=== PATIENT | female | born 1970 | race Caucasian/White ===

== ENCOUNTER 2018-06-19 08:59 | Emergency (ER) | payer BC ==
[2018-06-19] MEDS ORDERED: Iopamidol 370 76% 100 ML VIAL ONE (09:00)
[2018-06-19 09:52] LABS: Bilirubin Negative (Negative); Blood, Urine Negative (Negative); Clarity Clear (Clear); Glucose, Urine (Dipstick) Negative (Negative); Leukocyte Negative (Negative); Nitrite Negative (Negative); Protein, Urine (Dipstick) Negative (Neg-Trace); Specific Gravity, Urine 1.015 (1.005-1.030); Urobilinogen 0.2 mg/dL (0.2-1.0); pH, Urine 7.5 (5.0-9.0)
[2018-06-19] MEDS ORDERED: Ketorolac Tromethamine 30 MG/ML VIAL ONE (09:57)
[2018-06-19] MEDS ORDERED: Ondansetron HCl/PF 4 MG/2 ML Vial ONE (09:57)
[2018-06-19 10:08] LABS: #Basophils 0.1 thou/uL (0.0-0.2); #Lymphocytes 1.4 thou/uL (1.20-3.40); #Monocytes 0.6 thou/uL (0.11-0.59); %Basophils 0.7 % (0.0-1.0); %Eosinophils 0.3 % (0.0-10.0); %Lymphocytes 12.2 % (21.0-51.0); %Monocytes 5.8 % (0.0-10.0); Hemoglobin 14.5 g/dL (12.0-16.0); Mean Corpuscular HGB CONC 34.8 g/dL (32.0-36.0); Mean Corpuscular Hemoglobin 29.7 pg (27.0-31.0); Mean Corpuscular Volume 85.4 fL (78.0-98.0); Mean Platelet Volume 7.7 fL (7.4-10.4); Platelet Count 227 thou/uL (130-400); RBC Distribution Width 11.8 % (11.5-14.5); Red Blood Cell (RBC) Count 4.89 mill/uL (4.20-5.40); White Blood Cell (WBC) Count 11.1 thou/uL (4.8-10.8)
[2018-06-19 10:22] LABS: ALT (SGPT) 10 U/L (8-55); AST (SGOT) 16 U/L (5-34); Alkaline Phosphatase 87 U/L (40-150); Anion Gap 13 mmol/L (10-20); BUN (Urea Nitrogen) 14 mg/dL (7.0-18.7); Bilirubin, Total 0.7 mg/dL (0.2-1.2); CK (CPK) 29 U/L (29-168); Calc. Creatinine Clearance 0 mL/min (70-130); Calcium 10.5 mg/dL (7.8-10.44); Carbon Dioxide 24 mmol/L (22-29); Chloride 103 mmol/L (98-107); Estimated GFR-MDRD 71; Globulin 3.4 g/dL (2.4-3.5); Glucose 110 mg/dL (70-105); Lipase 14 U/L (8-78); Potassium 3.4 mmol/L (3.5-5.1); Protein, Total 7.4 g/dL (6.0-8.3); Sodium 137 mmol/L (136-145)
[2018-06-19 10:24] LABS: CKMB 0.4 ng/mL (0-6.6); Troponin I Less than 0.010 ng/mL (< 0.028)
[2018-06-19] MEDS ORDERED: Fentanyl 100 MCG/2 ML VIAL ONE (11:05)
--- NOTE | 2018-06-19 13:06 | CT ---
CT OF ABDOMEN AND PELVIS: DATE: 06/19/18. COMPARISON: 06/14/13. HISTORY Mid abdominal pain radiating to the back. TECHNIQUE: Serial axial ct imaging is obtained at 5 mm intervals from the lung bases through the pubic symphysis with IV contrast. Coronal reformatted imaging obtained. FINDINGS: Partially visualized breast implants noted. Imaged lung bases grossly unremarkable. No free intraperitoneal air noted. Assessment of the bowel is somewhat limited without oral contrast media. The liver, spleen, and gallbladder demonstrate no acute findings. The intrarenal glands and kidneys appear unremarkable. There is mild ill-defined nature of the pancreatic body and tail with mild peripancreatic inflammator y stranding in this region. Pancreas is otherwise atrophic. The appendix appears grossly unremarkable. The uterus appears surgically absent. There is extensive diverticulosis of the sigmoid colon with no evidence for diverticulitis. The vascular structures of the abdomen/pelvic appear patent. No lymphadenopathy is identified in the abdomen or pelvis. Review of the osseous structures demonstrates lower lumbar spine degenerative change with vacuum disk formation at the lumbosacral junction as well as multilevel lower lumbar spine facet hypertrophic ch [place]. IMPRESSION: 1. Findings suspicious for pancreatitis involving the distal pancreatic body and tail. 2. No evidence for free intraperitoneal air o bowel obstruction. 3. Sigmoid diverticulosis without evidence for diverticulitis. POS: [facility]
== END 2018-06-19 12:27 | disposition home or self-care (01) ==
LOC: SCSER 08:59
DX: R10.13 Epigastric pain (principal); Z79.899 Other long term (current) drug therapy
CPT/HCPCS: 74177; 80053; 81003; 82550; 82553; 83605; 83690; 84484; 85025; 93005; 96361; 96374; 96375; J1885; J2405; J3010

== ENCOUNTER 2018-10-28 19:16 | Emergency (ER) | payer BC ==
[2018-10-28 20:01] LABS: Bilirubin Small (Negative); Blood, Urine Negative (Negative); Clarity Slightly Cloudy (Clear); Glucose, Urine (Dipstick) Negative (Negative); Leukocyte Trace (Negative); Nitrite Negative (Negative); Protein, Urine (Dipstick) Negative (Neg-Trace)
[2018-10-28] MEDS ORDERED: Morphine 4 MG/ML VIAL ONE (20:01)
[2018-10-28] MEDS ORDERED: Prochlorperazine 10 MG/2 ML VIAL ONE (20:01)
[2018-10-28 20:06] LABS: Bacteria/HPF Rare-Few HPF (None Seen); Crystals/HPF 1+ AMORPH PHOS HPF (Negative); RBC/HPF 0-3 HPF (0-3); Squamous Epithelial 0-3 HPF (0-3); WBC/HPF 0-3 HPF (0-3)
[2018-10-28 20:27] LABS: #Basophils 0.1 thou/uL (0.0-0.2); #Eosinphils 0.2 thou/uL (0.0-0.7); #Lymphocytes 0.7 thou/uL (1.20-3.40); #Monocytes 0.5 thou/uL (0.11-0.59); #Neutrophils 6.9 thou/uL (1.40-6.50); %Eosinophils 1.8 % (0.0-10.0); %Monocytes 6.3 % (0.0-10.0); %Neutrophils 82.8 % (42.0-75.0); Hemoglobin 13.3 g/dL (12.0-16.0); Mean Corpuscular HGB CONC 34.5 g/dL (32.0-36.0); Mean Corpuscular Hemoglobin 30.4 pg (27.0-31.0); Mean Platelet Volume 7.5 fL (7.4-10.4); Platelet Count 179 thou/uL (130-400); RBC Distribution Width 12.7 % (11.5-14.5); Red Blood Cell (RBC) Count 4.39 mill/uL (4.20-5.40); White Blood Cell (WBC) Count 8.3 thou/uL (4.8-10.8)
[2018-10-28 20:53] LABS: ALT (SGPT) 12 U/L (8-55); AST (SGOT) 15 U/L (5-34); Albumin 3.9 g/dL (3.5-5.0); Alkaline Phosphatase 137 U/L (40-150); Anion Gap 16 mmol/L (10-20); BUN (Urea Nitrogen) 13 mg/dL (7.0-18.7); Bilirubin, Total 0.7 mg/dL (0.2-1.2); Calc. Creatinine Clearance 0 mL/min (70-130); Calcium 10.3 mg/dL (7.8-10.44); Carbon Dioxide 26 mmol/L (22-29); Chloride 102 mmol/L (98-107); Estimated GFR-MDRD 75; Glucose 117 mg/dL (70-105); Lipase 17 U/L (8-78); Potassium 4.1 mmol/L (3.5-5.1); Protein, Total 6.9 g/dL (6.0-8.3); Sodium 140 mmol/L (136-145)
== END 2018-10-28 22:11 | disposition home or self-care (01) ==
LOC: SCSER 19:16
DX: R10.13 Epigastric pain (principal); M32.9 Systemic lupus erythematosus, unspecified; M06.9 Rheumatoid arthritis, unspecified
CPT/HCPCS: 80053; 81003; 81015; 83690; 85025; 96365; 96366; 96375; J0780; J2270

== ENCOUNTER 2018-11-01 09:11 | Outpatient (CLI) | payer BC ==
[2018-11-01] MEDS ORDERED: Lidocaine 2% PF 100 mg/5 ml Syringe ONE (11:11)
[2018-11-01] MEDS ORDERED: Sodium Chloride 0.9% 15 ML NEB ONE (11:11)
--- NOTE | 2018-11-01 12:23 | HP ---
HISTORY OF PRESENT ILLNESS: Ms. Leeann Nogueira is a very pleasant 48-year-old, who presents [facility] for evaluation of an ulceration over the dorsum of the right foot subsequent to surgery on 09/17/2018 for bunions and complications of rheumatoid arthritis. The patient underwent the preceding procedure by Dr. Higuera and Dr. Becerril. The patient states that surgery included the resection of the first through fourth metatarsal heads. The patient states that sutures were discontinued 2-1/2 weeks after surgery, and at this time, the presence of a nonhealing surgical wound was noted. The patient states that she has been dressing her wound with Santyl followed by a plain packing strip moistened with sterile water. 4x4s, Kerlix, and Coban are also utilized at the time of dressing changes as secondary dressings. The patient states that the wound has markedly improved in its appearance with the preceding regimen, which she has been utilizing for the past 12 days. PAST MEDICAL HISTORY: 1. Breast carcinoma. 2. Rheumatoid arthritis. 3. Lupus. PAST SURGICAL HISTORY: 1. Wrist surgery x2. 2. Hysterectomy. 3. Left mastectomy. 4. Left foot surgery on 10/09/2018. 5. Right foot surgery as per HPI. MEDICATIONS: 1. Osteo DS. 2. Fenoprofen. 3. Bactrim DS. 4. Trezix. ALLERGIES: CEPHALEXIN. SOCIAL HISTORY: Social history is negative for tobacco or EtOH use. FAMILY HISTORY: Family history is significant for coronary artery disease. The patient states that her mother was diagnosed with coronary artery disease. Family history is negative for diabetes mellitus. PHYSICAL EXAMINATION: VITAL SIGNS: Temperature 97.4, pulse 78, respirations 19, and blood pressure 112/73. GENERAL: A 48-year-old female, sitting on table in examination room, in no acute distress. HEENT: Normocephalic and atraumatic. NECK: No nuchal rigidity. CHEST: Clear to auscultation. CV: Regular rate and rhythm. ABDOMEN: Soft. EXTREMITIES: A wound over the dorsum of the right foot is present, which measures approximately 1.9 x 2.1 cm. Nonviable tissue present within the wound margins was debrided with an excisional full-thickness debridement with the use of a curette. Granulation tissue, a small amount is visible within the wound margins. No purulent drainage is associated with the wound. No erythema of the skin surrounding the wound is present. No maceration of the skin of the periwound is noted. A dorsalis pedis pulse is palpable on the right. No significant edema of the right foot is appreciated on exam today. NEUROLOGIC: Grossly nonfocal. ASSESSMENT AND PLAN: 1. Nonhealing surgical wound of dorsum of right foot as described above. Dressing changes of Santyl will be continued. The patient has been instructed however to utilize only 4x4s, Kerlix, and Coban as secondary dressings. No antibiotics will be prescribed today based upon the appearance of the wound. I will see Ms. Nogueira again in 2 weeks. The patient understands and is in agreement with the preceding treatment plan. 2. Breast carcinoma. 3. Rheumatoid arthritis. 4. Lupus. Job ID: [id number]
== END 2018-11-01 09:12 | disposition home or self-care (01) ==
LOC: WCC 09:11
PROVIDERS: ATTEND Family Medicine
DX: T81.89XD Other complications of procedures, not elsewhere classified, subsequent encounter (principal); C50.919 Malignant neoplasm of unspecified site of unspecified female breast; M06.9 Rheumatoid arthritis, unspecified; M32.9 Systemic lupus erythematosus, unspecified
CPT/HCPCS: 11042; 99203; A4218; G0463; J2001

== ENCOUNTER 2018-11-10 09:44 | Outpatient (CLI) | payer BC ==
--- NOTE | 2018-11-10 11:20 | PRG ---
DATE OF SERVICE: 11/10/2018 HISTORY: Ms. Leeann Nogueira is a very pleasant 48-year-old, who presents to the [facility] for evaluation of an ulceration over the dorsum of the right foot subsequent to surgery on 09/17/2018 for bunions and complications of rheumatoid arthritis. The patient underwent the preceding procedure by Dr. Higuera and Dr. Becerril. The patient stated that surgery included the resection of the first through the fourth metatarsal heads. The patient stated that sutures were discontinued 2-1/2 weeks after surgery and at this time, the presence of a nonhealing surgical wound was noted. The patient stated that she had been dressing her wound with Santyl followed by a plain packing strip moistened with sterile water, 4x4s, Kerlix, and Coban prior to being seen in the [facility] Center. PHYSICAL EXAMINATION: VITAL SIGNS: Temperature 97.6, pulse 80, respirations 19, and blood pressure 113/72. EXTREMITIES: A wound over the dorsum of the right foot is present, which measures approximately 1.7 x 1.8 cm. The dimensions of the wound at the time of the patient's last visit were approximately 1.9 x 2.1 cm. Granulation tissue is visible within the wound margins. Nonviable tissue present within the wound margins was debrided with an excisional full-thickness debridement with the use of a curette. No purulent drainage is associated with the wound. No erythema of the skin surrounding the wound is present. No maceration of the skin of the periwound is noted. No significant edema of the right foot is present on exam today. ASSESSMENT AND PLAN: 1. Nonhealing surgical wound of dorsum of right foot as described above. Dressing changes of Santyl followed by 4x4s, Kerlix, and Coban will be continued on a daily basis after cleansing and irrigation. The patient will continue to perform her own dressing changes. I will see Ms. Nogueira again in 2 weeks. 2. Breast carcinoma. 3. Rheumatoid arthritis. 4. Lupus. Job ID: [id number]
[2018-11-10] MEDS ORDERED: Lidocaine 2% PF 100 mg/5 ml Syringe ONE (15:00)
[2018-11-10] MEDS ORDERED: Sodium Chloride 0.9% 15 ML NEB ONE (15:00)
== END 2018-11-10 09:45 | disposition home or self-care (01) ==
LOC: WCC 09:44
PROVIDERS: ATTEND Family Medicine
DX: T81.89XD Other complications of procedures, not elsewhere classified, subsequent encounter (principal); M06.9 Rheumatoid arthritis, unspecified; M32.9 Systemic lupus erythematosus, unspecified; C50.919 Malignant neoplasm of unspecified site of unspecified female breast

== ENCOUNTER 2019-04-21 15:23 | Outpatient (CLI) | payer BC ==
[2019-04-21 15:46] LABS: #Basophils 0.1 thou/uL (0.0-0.2); #Eosinphils 0.1 thou/uL (0.0-0.7); #Lymphocytes 1.1 thou/uL (1.20-3.40); #Monocytes 0.7 thou/uL (0.11-0.59); #Neutrophils 9.4 thou/uL (1.40-6.50); %Basophils 1.2 % (0.0-1.0); %Eosinophils 0.6 % (0.0-10.0); %Lymphocytes 9.3 % (21.0-51.0); Hemoglobin 14.1 g/dL (12.0-16.0); Mean Corpuscular HGB CONC 33.7 g/dL (32.0-36.0); Mean Corpuscular Hemoglobin 29.7 pg (27.0-31.0); Mean Platelet Volume 8.5 fL (7.4-10.4); Platelet Count 245 thou/uL (130-400); Red Blood Cell (RBC) Count 4.76 mill/uL (4.20-5.40); White Blood Cell (WBC) Count 11.3 thou/uL (4.8-10.8)
--- NOTE | 2019-04-21 15:54 | RAD ---
2 VIEWS CHEST: Date: 04/21/19 COMPARISON: 01/24/14. HISTORY: Shortness of breath. FINDINGS: Two views of the chest show normal sized cardiomediastinal silhouette. There is no evidence of consol idation, mass, or pleural effusion. The bones are unremarkable. IMPRESSION: No evidence of acute cardiopulmonary disease. POS: [facility]
[2019-04-21 16:10] LABS: ALT (SGPT) 13 U/L (8-55); AST (SGOT) 19 U/L (5-34); Albumin 4.1 g/dL (3.5-5.0); Alkaline Phosphatase 154 U/L (40-150); Anion Gap 15 mmol/L (10-20); BUN (Urea Nitrogen) 17 mg/dL (7.0-18.7); Bilirubin, Total 0.8 mg/dL (0.2-1.2); CRP (Inflammatory) 2.35 mg/dL (= or < 0.5); Calc. Creatinine Clearance 0 mL/min (70-130); Calcium 10.6 mg/dL (7.8-10.44); Carbon Dioxide 26 mmol/L (22-29); Chloride 105 mmol/L (98-107); Estimated GFR-MDRD 67; Globulin 3.3 g/dL (2.4-3.5); Glucose 111 mg/dL (70-105); Lipase 23 U/L (8-78); Protein, Total 7.4 g/dL (6.0-8.3); Sodium 141 mmol/L (136-145)
== END 2019-04-21 15:24 | disposition home or self-care (01) ==
LOC: SCSRAD 15:23
PROVIDERS: ATTEND Family Medicine
DX: R07.9 Chest pain, unspecified (principal); R10.11 Right upper quadrant pain
CPT/HCPCS: 36415; 71046; 80053; 82150; 83690; 85025; 85652; 86140